=== PATIENT | male | born 1950 | race African-American/Black ===

== ENCOUNTER → 2020-03-29 10:40 | Outpatient (CLI) | payer MEDICARE ==
[2011-05-26 09:15] VITALS: BMI 39.5
[2020-03-29 11:22] LABS: BASOPHILS 0.2 % (0-2); EOSINOPHILS 2.3 % (0-7); HEMATOCRIT 35.3 % (42.0-54.0); HEMOGLOBIN 11.3 g/dL (13.5-17.5); IMMATURE GRANULOCYTES 0.2 % (0-5); LYMPHOCYTES 26.2 % (15-50); MCH 28.5 pg (26.0-34.0); MCV 89.1 fL (80.0-100.0); MEAN PLATELET VOLUME 8.3 fL (7.4-10.4); MONOCYTES 5.6 % (2-11); NEUTROPHILS 65.5 % (40-80); PLATELET COUNT 246 10x3/uL (130-400); RBC 3.96 10x6/uL (4.20-6.10); RDW 13.8 % (11.5-14.5); WBC 5.6 10x3/uL (4.8-10.8)
[2020-03-29 11:36] LABS: PROTIME 13.1 SECONDS (11.6-15.0)
[2020-03-29 11:37] LABS: APTT 31.2 SECONDS (22.8-39.4)
[2020-03-29 11:44] LABS: % SATURATION 18 % (15-55); IRON 51 ug/dl (35-150); TOTAL IRON BIND CAPACITY 281 ug/dl (260-445); UNSAT IRON BIND CAPACITY 230 ug/dl (150-375)
[2020-03-29 12:35] LABS: ALBUMIN 3.2 g/dL (3.4-5.0); ANION GAP 12.9 mmol/L (8-16); BILIRUBIN - TOTAL 0.16 mg/dL (0.2-1.3); CALCIUM 9.3 mg/dL (8.5-10.1); CARBON DIOXIDE 27.3 mmol/L (21.0-32.0); CREATININE - SERUM 1.6 mg/dL (0.6-1.3); POTASSIUM - SERUM 4.2 mmol/L (3.5-5.1); PROTEIN - SERUM 7.8 g/dL (6.4-8.2)
[2020-03-30 11:11] LABS: ACLA - IGG AB <9 GPL U/mL (0-14); ACLA - IGM AB 17 MPL U/mL (0-12)
[2020-03-31 14:11] LABS: PROTEIN S - FREE 69 % (57-157); PROTEIN S - FUNCTIONAL 80 % (63-140); PROTEIN S - TOTAL 126 % (60-150)
[2020-04-01 06:11] LABS: PROTEIN C - ANTIGEN 127 % (60-150); PROTEIN C - FUNCTIONAL 134 % (73-180)
[2020-04-01 15:12] LABS: LUPUS - INTERPRETATION Comment: (()); LUPUS - dRVVT 31.6 sec (0.0-47.0)
== END | disposition home or self-care (01) ==
LOC: D.LAB 10:40
PROVIDERS: ATTEND Internal Medicine Hematology & Oncology
DX: D68.9 Coagulation defect, unspecified (principal); I82.402 Acute embolism and thrombosis of unspecified deep veins of left lower extremity